=== PATIENT | male | born 1970 | race Caucasian/White ===

== ENCOUNTER → 2016-10-06 | Outpatient (CLI) | payer BC ==
[~2016-10-06] MED LIST: ASPI81TA28 PO; FLUO20CA35 PO; LORA-749 PO
[2016-10-06 17:06] LABS: BASO % 0.8 %; BASO ABS # 0.05 K/uL (0-0.2); COMPLETE YES; EOS % 4.4 %; HEMATOCRIT 45.9 % (42-52); IG% 0.2 %; LYMPH % 30.4 %; LYMPH ABS # 2.02 K/uL (1.2-3.4); MEAN CELL VOLUME 92.9 fL (80-100); MEAN CORPUSCULAR HEMOGLOBIN 32.4 pg (25-34); MEAN CORPUSCULAR HGB CONC 34.9 g/dl (32-36); MONO % 8.7 %; NEUT % 55.5 %; PLATELET COUNT 203 K/uL (130-400); RED BLOOD COUNT 4.94 M/uL (4.7-6.1); WHITE BLOOD COUNT 6.64 K/uL (4.8-10.8)
[2016-10-06 17:23] LABS: ALT/SGPT 33 U/L (12-78); AST/SGOT 22 U/L (15-37); BLOOD UREA NITROGEN 8 mg/dl (7-18); BUN/CREATININE RATIO 8.7 (10-20); CALCIUM 8.2 mg/dl (8.5-10.1); CARBON DIOXIDE 28 mmol/L (21-32); CHLORIDE 107 mmol/L (98-107); GLUCOSE 86 mg/dl (70-99); POTASSIUM 4.3 mmol/L (3.5-5.1); SODIUM 142 mmol/L (136-145)
[2016-10-06 17:33] LABS: ALB/GLOB RATIO 1.2 (0.9-2); ALKALINE PHOSPHATASE 77 U/L (45-117); THYROID STIMULATING HORMONE 0.932 uIu/ml (0.300-4.500)
== END | disposition home or self-care (01) ==
LOC: C.LABBFT 12:00
PROVIDERS: ATTEND Physician Assistant Medical
DX: R06.02 Shortness of breath (principal); R42 Dizziness and giddiness

== ENCOUNTER → 2016-10-09 | Outpatient (CLI) | payer BC ==
--- NOTE | 2016-10-09 10:39 | DIAGNOSTIC IMAGING REPORT ---
CHEST 2 VIEWS ROUTINE CLINICAL HISTORY: R06.02 Shortness of [id number] dyspnea COMPARISON STUDY: 04/24/2016 FINDINGS: The bones soft tissues and hemidiaphragms are normal. The cardiomediastinal silhouette is normal. The lungs are clear. The pulmonary vasculature is normal. IMPRESSION: Negative chest. Electronically signed by: Jersey Aranda M.D. 10/09/2016 10:38 AM Dictated Date/Time: 10/09/2016 10:37 AM
== END | disposition home or self-care (01) ==
LOC: C.RAD 10:11
PROVIDERS: ATTEND Physician Assistant Medical
DX: R06.02 Shortness of breath (principal)

== ENCOUNTER 2017-03-29 08:28 | Emergency (ER) | payer BC ==
[~2017-03-29] VITALS: Ht 190.5 cm; Wt 97.8 kg
[~2017-03-29 08:28] MED LIST changes: -ASPI81TA28 PO; -LORA-749 PO
[2017-03-29 08:41] VITALS: TEMP 37; O2SAT 96; Ht 190.5 cm; Wt 97.8 kg
[2017-03-29 08:55] LABS: BASO % 0.9 %; BASO ABS # 0.04 K/uL (0-0.2); COMPLETE YES; EOS % 5.4 %; HEMATOCRIT 45.2 % (42-52); IG% 0.2 %; LYMPH % 35.9 %; LYMPH ABS # 1.54 K/uL (1.2-3.4); MEAN CELL VOLUME 90.9 fL (80-100); MEAN CORPUSCULAR HEMOGLOBIN 31.8 pg (25-34); MEAN PLATELET VOLUME 9.1 fL (7.4-10.4); MONO % 8.4 %; NEUT % 49.2 %; PLATELET COUNT 195 K/uL (130-400); RED BLOOD COUNT 4.97 M/uL (4.7-6.1); WHITE BLOOD COUNT 4.29 K/uL (4.8-10.8)
--- NOTE | 2017-03-29 09:01 | DIAGNOSTIC IMAGING REPORT ---
SINGLE VIEW CHEST CLINICAL HISTORY: Atypical chest pain. FINDINGS: An AP, portable, upright chest radiograph is compared to study dated 10/09/2016. The examination is degraded by portable technique and patient rotation. The cardiomediastinal silhouette is unremarkable. There is mild elevation of the right hemidiaphragm. The lungs and pleural spaces are clear. No pneumothorax is seen. The bony thorax is grossly intact. Fusion hardware is seen in the lower cervical spine. Postoperative change is also seen in the left shoulder. IMPRESSION: No acute cardiopulmonary abnormality. Electronically signed by: Nathan Chu M.D. 03/29/2017 8:59 AM Dictated Date/Time: 03/29/2017 8:58 AM
[2017-03-29 09:03] LABS: PARTIAL THROMBOPLASTIN RATIO 1.2; PROTHROMBIN TIME (PATIENT) 10.9 SECONDS (9.0-12.0)
[2017-03-29] MEDS ORDERED: LORA-749 PO (09:05)
[2017-03-29] MEDS ORDERED: ASPI81TA28 PO (09:05)
[2017-03-29 09:17] LABS: BUN/CREATININE RATIO 5.1 (10-20); CALCIUM 8.9 mg/dl (8.5-10.1); CREATININE 0.94 mg/dl (0.60-1.40); MAGNESIUM 2.4 mg/dl (1.8-2.4); POTASSIUM 4.2 mmol/L (3.5-5.1)
[2017-03-29 09:28] LABS: ALB/GLOB RATIO 1.2 (0.9-2); THYROID STIMULATING HORMONE 0.974 uIu/ml (0.300-4.500)
[2017-03-29] MEDS ORDERED: GI COCKTAIL PO STA (10:59)
[2017-03-29] MEDS ORDERED: LIDOCAINE HCL 2% VISC SOLN 20 ML UDC ONE (11:05)
[2017-03-29] MEDS ORDERED: ALUMINUM/MAGNESIUM SUSP 30 ML UDC ONE (11:05)
--- NOTE | 2017-03-29 14:09 | EMERGENCY ROOM VISIT NOTE ---
History First contact with patient: 08:36 Chief Complaint: CARDIAC ASSESSMENT Stated Complaint: CHEST TIGHTNESS/DIZZINESS Nursing Triage Summary: pt reports chest tightness started 2 days ago has been constant. no sob/n/v/not radiating. took 1 baby asa prior to arrival. yesterday felt like he was going to pass out History of Present Illness The patient is a 46 year old male who presents to the Emergency Room via private vehicle accompanied by female with complaints of "chest tightness/ dizziness". The patient states that 2 days ago he began with substernal chest pain that he rates as a 1/10. He states it is actually not really pain rather it's more of a tightness sensation. The pain is worse slightly with exertion but more when eating. There is slight shortness of breath. He has a history of A. fib. He states that he was chemically cardioverted. He did take aspirin this morning. The pain has been constant for the past 2 days. He denies any history of asthma. He did have some upper respiratory tract symptoms a few weeks ago but believes this is unrelated. He does smoke. He denies any recent surgeries, or leg swelling. Review of Systems A complete 10-point Review of Systems was discussed with the patient, with pertinent positives and negatives listed in the History of Present Illness. All remaining Review of Systems questions can be considered negative unless otherwise specified. Past Medical/Surgical History Medical Problems: (1) Fusion of C5 C6 cervical spine (2) Paroxysmal atrial fibrillation Family History Patient reports no known family medical history. Social History Smoking Status: Current Every Day Smoker Alcohol Use: occasionally Drug Use: none Marital Status: Housing Status: lives with family Occupation Status: employed Current/Historical Medications Scheduled Aspirin (Aspirin Ec), 81 MG PO UD Fluoxetine (Prozac), 20 MG PO BID Loratadine & Pseudoephedrine (Claritin-D 24 Hour), 1 TAB PO DAILY Physical Exam Vital Signs Date Time Temp Pulse Resp B/P (MAP) Pulse Ox O2 Delivery O2 Flow Rate FiO2 03/29/17 14:44 73 16 154/91 95 03/29/17 13:49 72 03/29/17 13:17 73 18 151/94 96 Room Air 03/29/17 11:51 67 16 149/97 96 Room Air 03/29/17 11:09 67 18 170/99 95 Room Air 03/29/17 10:05 63 18 155/95 97 Room Air 03/29/17 08:44 74 03/29/17 08:41 37.0 67 18 170/99 96 Room Air 03/29/17 08:41 96 Room Air Physical Exam VITAL SIGNS - Vital signs and nursing notes were reviewed. Stable. Hypertensive. GENERAL -46-year-old male appearing his stated age who is in no acute distress. Communicates well with provider and answers questions appropriately. SKIN - Without rashes. No petechial rashes. HEAD - NC/AT. EYES -Sclera anicteric. EARS - No deformities of external structures noted on gross examination bilaterally. NOSE - Midline and without cyanosis. No epistaxis or purulent drainage noted. MOUTH/OROPHARYNX - Without perioral cyanosis. LUNGS - Chest wall symmetric without accessory muscle use, intercostals retractions, or central cyanosis. Normal vesicular breath sounds CTA B/L. No wheezes, rales, or rhonchi appreciated. CARDIAC - RRR with S1/S2. No murmur, rubs, or gallops appreciated. Substernal pain is not reproducible with palpation. ABDOMEN - Abdominal contour normal without pulsations or visible masses. BS normoactive all four quadrants. No tenderness, palpable masses, hepatosplenomegaly, or ascites noted. Medical Decision & Procedures ER Provider Diagnostic Interpretation: SINGLE VIEW CHEST CLINICAL HISTORY: Atypical chest pain. FINDINGS: An AP, portable, upright chest radiograph is compared to study dated 10/09/2016. The examination is degraded by portable technique and patient rotation. The cardiomediastinal silhouette is unremarkable. There is mild elevation of the right hemidiaphragm. The lungs and pleural spaces are clear. No pneumothorax is seen. The bony thorax is grossly intact. Fusion hardware is seen in the lower cervical spine. Postoperative change is also seen in the left shoulder. IMPRESSION: No acute cardiopulmonary abnormality. Electronically signed by: Nathan Chu M.D. 03/29/2017 8:59 AM Dictated Date/Time: 03/29/2017 8:58 AM Laboratory Results 03/29/17 08:40 Red Blood Count 4.97, Mean Corpuscular Volume 90.9, Mean Corpuscular Hemoglobin 31.8, Mean Corpuscular Hemoglobin Concent 35.0, Mean Platelet Volume 9.1, Neutrophils (%) (Auto) 49.2, Lymphocytes (%) (Auto) 35.9, Monocytes (%) (Auto) 8.4, Eosinophils (%) (Auto) 5.4, Basophils (%) (Auto) 0.9, Neutrophils # (Auto) 2.11, Lymphocytes # (Auto) 1.54, Monocytes # (Auto) 0.36, Eosinophils # (Auto) 0.23, Basophils # (Auto) 0.04 03/29/17 08:40 Test 03/29/17 08:40 03/29/17 08:56 03/29/17 13:03 White Blood Count 4.29 K/uL (4.8-10.8) Red Blood Count 4.97 M/uL (4.7-6.1) Hemoglobin 15.8 g/dL (14.0-18.0) Hematocrit 45.2 % (42-52) Mean Corpuscular Volume 90.9 fL (80-100) Mean Corpuscular Hemoglobin 31.8 pg (25-34) Mean Corpuscular Hemoglobin Concent 35.0 g/dl (32-36) Platelet Count 195 K/uL (130-400) Mean Platelet Volume 9.1 fL (7.4-10.4) Neutrophils (%) (Auto) 49.2 % Lymphocytes (%) (Auto) 35.9 % Monocytes (%) (Auto) 8.4 % Eosinophils (%) (Auto) 5.4 % Basophils (%) (Auto) 0.9 % Neutrophils # (Auto) 2.11 K/uL (1.4-6.5) Lymphocytes # (Auto) 1.54 K/uL (1.2-3.4) Monocytes # (Auto) 0.36 K/uL (0.11-0.59) Eosinophils # (Auto) 0.23 K/uL (0-0.5) Basophils # (Auto) 0.04 K/uL (0-0.2) RDW Standard Deviation 41.9 fL (36.4-46.3) RDW Coefficient of Variation 12.7 % (11.5-14.5) Immature Granulocyte % (Auto) 0.2 % Immature Granulocyte # (Auto) 0.01 K/uL (0.00-0.02) Prothrombin Time 10.9 SECONDS (9.0-12.0) Prothromb Time International Ratio 1.0 (0.9-1.1) Activated Partial Thromboplast Time 31.2 SECONDS (21.0-31.0) Partial Thromboplastin Ratio 1.2 D-Dimer 340 ug/L FEU (0-500) Anion Gap 8.0 mmol/L (3-11) Est Creatinine Clear Calc Drug Dose 118.6 ml/min Estimated GFR () 113.0 Estimated GFR (Non- 97.5 BUN/Creatinine Ratio 5.1 (10-20) Calcium Level 8.9 mg/dl (8.5-10.1) Magnesium Level 2.4 mg/dl (1.8-2.4) Total Bilirubin 0.6 mg/dl (0.2-1) Aspartate Amino Transf (AST/SGOT) 28 U/L (15-37) Alanine Aminotransferase (ALT/SGPT) 39 U/L (12-78) Alkaline Phosphatase 87 U/L (45-117) Total Creatine Kinase 112 U/L (39-308) Creatine Kinase MB 1.1 ng/ml (0.5-3.6) Creatine Kinase MB Ratio 1.0 (0-3.0) Total Protein 7.9 gm/dl (6.4-8.2) Albumin 4.3 gm/dl (3.4-5.0) Globulin 3.6 gm/dl (2.5-4.0) Albumin/Globulin Ratio 1.2 (0.9-2) Lipase 327 U/L (73-393) Thyroid Stimulating Hormone (TSH) 0.974 uIu/ml (0.300-4.500) Bedside Troponin I < 0.030 ng/ml (0-0.045) Troponin I 0.035 ng/ml (0-0.045) Medications Administered Medications (Trade) Dose Ordered Sig/Kt Route Start Time Stop Time Status Last Admin Dose Admin Al Hydroxide/Mg Hydroxide (Maalox Susp) 30 ml STK-MED ONCE .ROUTE 03/29/17 11:05 03/29/17 11:06 DC 03/29/17 11:08 30 ML Lidocaine HCl (Viscous Lidocaine 2% Soln) 20 ml STK-MED ONCE .ROUTE 03/29/17 11:05 03/29/17 11:06 DC 03/29/17 11:09 20 ML Medical Decision Patient was seen and evaluated as above. He presents to us today with substernal chest pain. It is worse after eating. It is also slightly worse with exertion. He is well on exam. His history of A. fib. Otherwise he is healthy. The pain has been persistent for the past 2 days. Troponin was found to be normal but approaching high normal. Chest x-ray no acute process, perhaps a slight elevation of the right hemidiaphragm but is similar compared to previous. His bedside EKG reveals normal sinus rhythm, with EDC's. No evidence of NV or PE. This appears improved compared to previous. Patient's CBC reveals white blood cell count low at 4.29. No evidence of anemia. Coags grossly normal, d-dimer 340. Patient had a blood panel reveals no evidence of kidney or liver failure. TSH normal. Lipase normal. I discussed the case with the attending physician, and subsequent only Dr. Che, at 11:25 AM. The night order selector recommended that I repeat a troponin at 1 PM. He was also given a GI cocktail and felt much better. He states that this increases he is to admitted, if the same or less he can be followed in the outpatient setting. This was performed and found to be slightly elevated white 0.003 points. I felt that admission was appropriate, therefore discussed the case with Dr. Aparicio , [facility] hospitalist group. He felt that the number was insignificant, and could be lab error margin. He requests I speak with Dr. Che, of cardiology again. I did so at 2:00 PM. I informed him upon the findings. He recommended that I could send the patient home to follow-up in the outpatient setting rather than admission. I believe this is reasonable. The patient also preferred to be discharged. He is to follow with cardiology/family doctor from today's visit. He is also to follow up through his elevated blood pressure. He was educated upon management, educated upon worrisome symptoms which to return, had questions answered prior to discharge, and was discharged home in good condition. In evaluation treatment this patient following differential diagnoses were entertained: NV, PE, pericarditis, GERD, among others. Impression Primary Impression: Chest pain Departure Information Dispostion Home / Self-Care Condition GOOD Referrals Jose Alicia M.D. (PCP) Tremayne Che M.D. Patient Instructions My [facility] Additional Instructions You have been treated in the Emergency Department your chest pain. Laboratory results and imaging studies have ruled out any emergent causes for your chest pain which would warrant admission or surgery but do recommend follow-up. You may use the [id number] Zantac as we discussed. Please call your family doctor to schedule follow-up and perhaps to see cardiology as well. Numbers listed above. Drink plenty of water and stay well hydrated. As with any trip to the Emergency Department, you should follow-up with your Primary Care Provider from today's visit. Please return with any new/concerning symptoms. Thank you
[2017-03-29 14:44] VITALS: BP 154/91; PULSE 73; O2SAT 95
== END 2017-03-29 14:44 | disposition home or self-care (01) ==
LOC: C.EDB 08:30 → C.EDA 14:44
DX: R07.9 Chest pain, unspecified (principal); I48.91 Unspecified atrial fibrillation; F17.200 Nicotine dependence, unspecified, uncomplicated; Z98.1 Arthrodesis status; Z79.82 Long term (current) use of aspirin; Z79.899 Other long term (current) drug therapy

== ENCOUNTER 2017-05-29 10:48 | Observation (INO) | payer BC ==
[2017-05-28 23:35] VITALS: BP 151/91; PULSE 56; TEMP 36.9; O2SAT 95
[~2017-05-29] VITALS: Ht 190.5 cm; Wt 94.6 kg
[~2017-05-29 10:48] MED LIST changes: +ASPI81TA28 PO; +LORA-749 PO
--- NOTE | 2017-05-29 11:30 | EMERGENCY ROOM VISIT NOTE ---
History First contact with patient: 11:01 Chief Complaint: DIZZY Stated Complaint: DIZZINESS/FAINTNESS Nursing Triage Summary: "I've been dizzy and feeling like I'm going to pass out." This has been going on for a couple of months and it's getting really bad now. Feels the dizziness on the left base of the head and travels up over his left eye. He had a prior bleed on the brain in 2008 on the left side. History of Present Illness The patient is a 46 year old male who presents to the Emergency Room with complaints of dizziness and presyncope for the past 3 months. The patient states the dizziness is pretty constant, but occasionally he feels like he will fall due to extreme dizziness and balance disturbances. The patient describes a pressure-like sensation radiating from the posterior base of his head around the top of his head and into his left thigh. The patient states he associates this pain with the presyncopal episodes. He does have a history of intracranial hemorrhage on the left side several years ago from an accident. The patient does not recall the sensation he had related to the intracranial hemorrhage, but is concerned due to this history. He does report history of neck surgery at C5/C6 and C7, but states sensation is not similar to anything he experienced with the neck problems either. He describes a cramping sensation in the left trapezius muscle, radiating from the left shoulder into the base of the head. He states this feels like a cramping sensation, and he is concerned that that could be making him dizzy. The patient denies any recent injury or falls. A few months ago, he was here with the same dizziness complaints but also complaining of chest discomfort. He states he continues to intermittently get the chest pressure, but it is not as bad now as it has been in the past. He has been following up outpatient with gastroenterology and cardiology regarding the chest discomfort, and is scheduled to see cardiology on . The chest pain is not exertional, and often happens associated with the severe dizziness while sitting and at rest. There is no associated dyspnea or diaphoresis the chest discomfort. The patient does report a history of atrial fibrillation, and states this is intermittent area he states he knows when he goes into and out of atrial fibrillation, and his last episode was "a few days ago". He states this lasted for approximately a half a day but went away on its own. He was previously on amiodarone and cardiac set, but was taken off of these medications. He has not consistently followed up with the painter hand regarding his atrial fibrillation. The patient denies any recent illness, nausea, vomiting, falls, weakness, blurry vision, wheezing, difficulty breathing, back pain, muscle aches, leg swelling, or other associated symptoms. Review of Systems A complete 10 point review of systems was reviewed with the patient with pertinent positives and negatives as per history of present illness. All else were negative. Past Medical/Surgical History Medical Problems: (1) Fusion of C5 C6 cervical spine (2) Paroxysmal atrial fibrillation Family History Patient reports no known family medical history. Social History Smoking Status: Current Every Day Smoker Alcohol Use: occasionally Drug Use: none Marital Status: Housing Status: lives with family Occupation Status: employed Current/Historical Medications Scheduled Aspirin (Aspirin Ec), 81 MG PO UD Fluoxetine (Prozac), 20 MG PO BID Omeprazole (Prilosec), 20 MG PO BID Physical Exam Vital Signs Date Time Temp Pulse Resp B/P (MAP) Pulse Ox O2 Delivery O2 Flow Rate FiO2 05/29/17 15:58 70 18 142/87 97 Room Air 05/29/17 14:51 58 16 150/87 97 Room Air 05/29/17 12:49 61 16 146/90 95 Room Air 05/29/17 11:37 76 05/29/17 11:27 75 167/107 73 150/99 78 132/105 05/29/17 11:27 98 Room Air 05/29/17 10:52 37.0 78 20 143/81 98 Room Air Physical Exam VITALS: Vitals are noted on the nurse's note and reviewed by myself. Vital signs stable. GENERAL: This is a 46-year-old white male, in no acute distress, nondiaphoretic , well-developed well-nourished. SKIN: The skin was without rashes, erythema, edema, or bruising. There is no tenting of the skin. Capillary reflex less than 2 seconds. HEAD: Normocephalic atraumatic. EARS: External auditory canals clear, tympanic membranes pearly tesfaye without erythema or effusion bilaterally. EYES: Pupils equal round and reactive to light and accommodation. Conjunctivae without injection, sclerae without icterus. Extraocular movements intact. NOSE: Patent, turbinates without inflammation or discharge. No sinus tenderness. MOUTH: Mucous membranes moist. Tonsils are not enlarged. Pharynx without erythema or exudate. Uvula midline. Airway patent. Tongue does not deviate. NECK: Supple without nuchal rigidity. No lymphadenopathy. No thyromegaly. Cervical spine is nontender. No JVD. HEART: Regular rate and rhythm without murmurs gallops or rubs. LUNGS: Clear to auscultation bilaterally without wheezes, rales or rhonchi. No dullness to percussion. No retractions or accessory muscle use. ABDOMEN: Positive bowel sounds x 4. Normal tympanic percussion. Soft, nontender, without masses or organomegaly. Wise sign negative. No guarding or rebound tenderness. MUSCULOSKELETAL: No muscle atrophy, erythema, or edema noted. Full range of motion without joint tenderness in all extremities. No tenderness to palpation. Normal gait. Strength 5/5 throughout. NEURO: Patient was alert and oriented to person place and time. Normal sensation to light and sharp touch. Cranial nerves II through VII in tact. Deep tendon reflexes 2+ throughout. No focal neurological deficits. Medical Decision & Procedures ER Provider Diagnostic Interpretation: CHEST 2 VIEWS ROUTINE CLINICAL HISTORY: Chest pain. Dizziness. COMPARISON STUDY: Chest radiograph March 29, 2017. FINDINGS: Lung volumes are normal. No consolidation is identified and there is no evidence for pulmonary edema. Cardiomediastinal silhouette is normal. Pulmonary vascularity is normal. The appearance of the chest is unchanged. IMPRESSION: No acute cardiopulmonary findings. Electronically signed by: Luis Keith M.D. 05/29/2017 1:46 PM Dictated Date/Time: 05/29/2017 1:[address] OF THE HEAD WITHOUT CONTRAST CLINICAL HISTORY: Dizziness, visual changes, pre-syncope. COMPARISON STUDY: Head CT January 08, 2016. CT DOSE: 614.27 mGy.cm TECHNIQUE: Helical axial images of the head were obtained without IV contrast. Automated exposure control was utilized for the study. A dose lowering technique was utilized adhering to the principles of ALARA. FINDINGS: No acute intracranial hemorrhage, midline shift or mass effect is present. Brain volume is normal. Ventricular system is normal. Basilar cisterns are patent. There are no extra-axial collections. Tesfaye-white differentiation is maintained. There are no findings to suggest acute thrombosis or acute territorial infarct. There are no significant calvarial abnormalities. Visualized portions of the sinuses and mastoid air cells are clear. IMPRESSION: No acute intracranial findings. Electronically signed by: Luis Keith M.D. 05/29/2017 12:07 PM Dictated Date/Time: 05/29/2017 12:05 PM Laboratory Results 05/29/17 11:40 Red Blood Count 4.76, Mean Corpuscular Volume 90.8, Mean Corpuscular Hemoglobin 31.7, Mean Corpuscular Hemoglobin Concent 35.0, Mean Platelet Volume 9.0, Neutrophils (%) (Auto) 49.5, Lymphocytes (%) (Auto) 36.1, Monocytes (%) (Auto) 7.9, Eosinophils (%) (Auto) 5.3, Basophils (%) (Auto) 1.2, Neutrophils # (Auto) 2.14, Lymphocytes # (Auto) 1.56, Monocytes # (Auto) 0.34, Eosinophils # (Auto) 0.23, Basophils # (Auto) 0.05 05/29/17 11:40 Test 05/29/17 11:20 05/29/17 11:40 05/29/17 13:00 05/29/17 16:01 Creatine Kinase MB Ratio (0-3.0) White Blood Count 4.32 K/uL (4.8-10.8) Red Blood Count 4.76 M/uL (4.7-6.1) Hemoglobin 15.1 g/dL (14.0-18.0) Hematocrit 43.2 % (42-52) Mean Corpuscular Volume 90.8 fL (80-100) Mean Corpuscular Hemoglobin 31.7 pg (25-34) Mean Corpuscular Hemoglobin Concent 35.0 g/dl (32-36) Platelet Count 186 K/uL (130-400) Mean Platelet Volume 9.0 fL (7.4-10.4) Neutrophils (%) (Auto) 49.5 % Lymphocytes (%) (Auto) 36.1 % Monocytes (%) (Auto) 7.9 % Eosinophils (%) (Auto) 5.3 % Basophils (%) (Auto) 1.2 % Neutrophils # (Auto) 2.14 K/uL (1.4-6.5) Lymphocytes # (Auto) 1.56 K/uL (1.2-3.4) Monocytes # (Auto) 0.34 K/uL (0.11-0.59) Eosinophils # (Auto) 0.23 K/uL (0-0.5) Basophils # (Auto) 0.05 K/uL (0-0.2) RDW Standard Deviation 40.7 fL (36.4-46.3) RDW Coefficient of Variation 12.3 % (11.5-14.5) Immature Granulocyte % (Auto) 0.0 % Immature Granulocyte # (Auto) 0.00 K/uL (0.00-0.02) Prothrombin Time 10.2 SECONDS (9.0-12.0) Prothromb Time International Ratio 1.0 (0.9-1.1) Activated Partial Thromboplast Time 29.0 SECONDS (21.0-31.0) Partial Thromboplastin Ratio 1.1 Anion Gap 6.0 mmol/L (3-11) Est Creatinine Clear Calc Drug Dose 128.2 ml/min Estimated GFR () 120.8 Estimated GFR (Non- 104.2 BUN/Creatinine Ratio 7.5 (10-20) Calcium Level 8.8 mg/dl (8.5-10.1) Magnesium Level 2.1 mg/dl (1.8-2.4) Total Bilirubin 0.7 mg/dl (0.2-1) Aspartate Amino Transf (AST/SGOT) 56 U/L (15-37) Alanine Aminotransferase (ALT/SGPT) 75 U/L (12-78) Alkaline Phosphatase 76 U/L (45-117) Creatine Kinase MB 1.1 ng/ml (0.5-3.6) Troponin I < 0.015 ng/ml (0-0.045) Total Protein 7.7 gm/dl (6.4-8.2) Albumin 4.2 gm/dl (3.4-5.0) Globulin 3.5 gm/dl (2.5-4.0) Albumin/Globulin Ratio 1.2 (0.9-2) Thyroid Stimulating Hormone (TSH) 1.140 uIu/ml (0.300-4.500) Lyme Disease IgG Antibody NEG (NEG) Lyme Disease IgM Antibody NEG (NEG) Urine Color DK YELLOW Urine Appearance CLEAR (CLEAR) Urine pH 7.5 (4.5-7.5) Urine Specific [place] 1.015 (1.000-1.030) Urine Protein NEG (NEG) Urine Glucose (UA) NEG (NEG) Urine Ketones NEG (NEG) Urine Occult Blood NEG (NEG) Urine Nitrite NEG (NEG) Urine Bilirubin NEG (NEG) Urine Urobilinogen NEG (NEG) Urine Leukocyte Esterase TRACE (NEG) Urine WBC (Auto) 1-5 /hpf (0-5) Urine RBC (Auto) 0-4 /hpf (0-4) Urine Hyaline Casts (Auto) 1-5 /lpf (0-5) Urine Epithelial Cells (Auto) 0-5 /lpf (0-5) Urine Bacteria (Auto) NEG (NEG) Random Cortisol 11.99 mcg/dl Medications Administered Medications (Trade) Dose Ordered Sig/Kt Route Start Time Stop Time Status Last Admin Dose Admin Sodium Chloride 1,000 ml @ 1,000 mls/hr Q1H IV 05/29/17 16:00 05/29/17 16:59 DC 05/29/17 17:55 1,000 MLS/HR ECG Indication: chest pain Rate (beats per minute): 69 Rhythm: sinus with SA Findings: no acute ischemic change, no ectopy Comparison ECG Date: 03/29/17 Change: no significant change ED Course The patient was seen and evaluated as above. He is currently complaining of his baseline dizziness, but denies any chest pain or feeling of presyncope. EKG obtained. IV access obtained, labs drawn. The patient was sent for CT head and chest x- ray. The case was reviewed with Dr. Friedman. Labs, imaging, EKG was reviewed and discussed with the patient at bedside. I did speak with the hospitalist, Dr. Medina, who will see and evaluate the patient. Medical Decision This is a 46-year-old male patient with past medical history of paroxysmal atrial fibrillation presents to the emergency department today complaining of dizziness and chest discomfort for several months. The patient was seen here in the emergency department in February with similar symptoms, and an outpatient workup regarding the patient's chest discomfort was initiated. The patient has had an upper endoscopy completed, and is scheduled to see cardiology this week, but his symptoms of dizziness, head pain, and chest discomfort have been worsening. He presents to the emergency department today, as he had very severe symptoms last night, to the point where he commented to his "you won't be laughing when I'm . You don't understand how bad this is." The patient has not discussed the dizziness or head pain with any provider outpatient. He states he does have this history of paroxysmal atrial fibrillation, and has not been managed with anticoagulants or other medication for several years. He has not seen his painter hand regularly, and has been noncompliant with follow-up. Workup here in the emergency department was overall unrevealing. CBC, CMP, cardiac enzymes, Lyme disease, magnesium testing were all within normal limits. Urinalysis did not reveal signs of infection. CT scan of the head and chest x-ray were unrevealing as well. EKG was reviewed by myself with no acute ischemic findings. Orthostatic viral signs showed slight decrease in blood pressure, but were certainly not positive. With the patient's history of atrial fibrillation and his symptoms, I am suspicious for possible stroke, and I do feel that the patient would benefit from inpatient workup to rule this out as a cause. The patient will be evaluated by the hospitalist. Please see hospitalist dictation regarding ongoing management and care. Etiologies such as ACS, PE, migraine, tumor, headache, sinus thrombosis, temporal arteritis, sinusitis, CVA, TIA, ICH, SAH, infection, as well as others were entertained. Medication Reconcilliation Current Medication List: was personally reviewed by me Blood Pressure Screening Patient's blood pressure: Normal blood pressure Impression Primary Impression: Dizziness Additional Impressions: Headache Chest pain AF (paroxysmal atrial fibrillation) Stroke-like symptoms Departure Information Dispostion Being Evaluated By Hospitalist Condition GOOD Referrals Jose Alicia M.D. (PCP) Patient Instructions My [facility] Problem Qualifiers Additional Impressions: Headache Headache type: unspecified Headache chronicity pattern: acute headache Intractability: intractable Qualified Codes: R51 - Headache Chest pain Chest pain type: other chest pain Qualified Codes: R07.89 - Other chest pain
[2017-05-29] MEDS ORDERED: PRLSR20 PO (11:35)
[2017-05-29 11:54] LABS: BASO % 1.2 %; BASO ABS # 0.05 K/uL (0-0.2); EOS % 5.3 %; EOS ABS # 0.23 K/uL (0-0.5); HEMATOCRIT 43.2 % (42-52); HEMOGLOBIN 15.1 g/dL (14.0-18.0); LYMPH % 36.1 %; LYMPH ABS # 1.56 K/uL (1.2-3.4); MEAN CELL VOLUME 90.8 fL (80-100); MEAN CORPUSCULAR HEMOGLOBIN 31.7 pg (25-34); MONO % 7.9 %; MONO ABS # 0.34 K/uL (0.11-0.59); NEUT % 49.5 %; NEUT ABS # 2.14 K/uL (1.4-6.5); PLATELET COUNT 186 K/uL (130-400); RED CELL DISTRIBUTION WIDTH CV 12.3 % (11.5-14.5); RED CELL DISTRIBUTION WIDTH SD 40.7 fL (36.4-46.3); WHITE BLOOD COUNT 4.32 K/uL (4.8-10.8)
--- NOTE | 2017-05-29 12:09 | DIAGNOSTIC IMAGING REPORT ---
CT OF THE HEAD WITHOUT CONTRAST CLINICAL HISTORY: Dizziness, visual changes, pre-syncope. COMPARISON STUDY: Head CT January 08, 2016. CT DOSE: 614.27 mGy.cm TECHNIQUE: Helical axial images of the head were obtained without IV contrast. Automated exposure control was utilized for the study. A dose lowering technique was utilized adhering to the principles of ALARA. FINDINGS: No acute intracranial hemorrhage, midline shift or mass effect is present. Brain volume is normal. Ventricular system is normal. Basilar cisterns are patent. There are no extra-axial collections. Tesfaye-white differentiation is maintained. There are no findings to suggest acute thrombosis or acute territorial infarct. There are no significant calvarial abnormalities. Visualized portions of the sinuses and mastoid air cells are clear. IMPRESSION: No acute intracranial findings. Electronically signed by: Luis Keith M.D. 05/29/2017 12:07 PM Dictated Date/Time: 05/29/2017 12:05 PM
[2017-05-29 12:17] LABS: ALBUMIN 4.2 gm/dl (3.4-5.0); ALT/SGPT 75 U/L (12-78); AST/SGOT 56 U/L (15-37); BLOOD UREA NITROGEN 7 mg/dl (7-18); CALCIUM 8.8 mg/dl (8.5-10.1); CARBON DIOXIDE 29 mmol/L (21-32); CREATININE 0.87 mg/dl (0.60-1.40); GLUCOSE 88 mg/dl (70-99); POTASSIUM 4.2 mmol/L (3.5-5.1); SODIUM 139 mmol/L (136-145)
[2017-05-29 12:28] LABS: ALKALINE PHOSPHATASE 76 U/L (45-117); CKMB 1.1 ng/ml (0.5-3.6); TOTAL PROTEIN 7.7 gm/dl (6.4-8.2)
--- NOTE | 2017-05-29 13:48 | DIAGNOSTIC IMAGING REPORT ---
CHEST 2 VIEWS ROUTINE CLINICAL HISTORY: Chest pain. Dizziness. COMPARISON STUDY: Chest radiograph March 29, 2017. FINDINGS: Lung volumes are normal. No consolidation is identified and there is no evidence for pulmonary edema. Cardiomediastinal silhouette is normal. Pulmonary vascularity is normal. The appearance of the chest is unchanged. IMPRESSION: No acute cardiopulmonary findings. Electronically signed by: Luis Keith M.D. 05/29/2017 1:46 PM Dictated Date/Time: 05/29/2017 1:46 PM
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
[2017-05-29] MEDS ORDERED: SODIUM CHLORIDE 0.9% 1000ML 1,000 ML IV SCH (16:00)
[2017-05-29] MEDS ORDERED: ACETAMINOPHEN 325 MG TAB PO PRN (16:15)
[2017-05-29] MEDS ORDERED: ONDANSETRON INJ 2 MG/ML 2 ML VIAL IV PRN (16:15)
[2017-05-29] MEDS ORDERED: ALUMINUM/MAGNESIUM/SIMETH (MAALOX MAX) 30 ML UDC PO PRN (16:15)
[2017-05-29] MEDS ORDERED: MAGNESIUM HYDROXIDE SUSP 30 ML UDC PO PRN (16:15)
[2017-05-29] MEDS ORDERED: LORAZEPAM 2 MG/ML 1 ML VIAL IV PRN (16:30)
[2017-05-29] MEDS ORDERED: GABAPENTIN 600 MG TAB PO SCH (16:30)
[2017-05-29] MEDS ORDERED: LORAZEPAM 1 MG TAB PO PRN (16:30)
[2017-05-29] MEDS ORDERED: CEROVITE ADV FORMULA TAB PO ONE (18:00)
[2017-05-29] MEDS ORDERED: THIAMINE HCL 100 MG TAB PO ONE (18:00)
--- NOTE | 2017-05-29 18:41 | DIAGNOSTIC IMAGING REPORT ---
ULTRASOUND OF THE CAROTID ARTERIES CLINICAL HISTORY: Near syncope. COMPARISON STUDY: No priors. TECHNIQUE: Real-time, grayscale, and color Doppler sonography of the carotid arteries is performed. Images are reviewed in the transverse and longitudinal planes. FINDINGS: Blood pressure in the right arm measures 155/91 and blood pressure in the left arm measures 158/87. The carotid arteries are patent bilaterally and demonstrate antegrade flow. There is no significant atherosclerotic plaque identified. Normal doppler arterial waveforms are seen throughout. Velocity measurements are listed below. Common carotid peak systolic velocity (cm/sec): RIGHT: 119 LEFT: 117 ICA proximal peak systolic velocity (cm/sec): RIGHT: 51 LEFT: 50 ICA mid peak systolic velocity (cm/sec): RIGHT: 42 LEFT: 61 ICA distal peak systolic velocity (cm/sec): RIGHT: 42 LEFT: 56 ICA/CC peak systolic ratio: RIGHT: 0.4 LEFT: 0.5 Antegrade flow was shown in the vertebral arteries. The external carotid arteries are patent. IMPRESSION: 1. There is no sonographic evidence of hemodynamically significant stenosis in the right or left carotid arterial system. 2. Antegrade flow is shown in the vertebral arteries. Electronically signed by: Nathan Chu M.D. 05/29/2017 6:39 PM Dictated Date/Time: 05/29/2017 6:38 PM
[2017-05-29 18:54] VITALS: BP 144/102; PULSE 69; TEMP 37.2; O2SAT 98; Ht 190.5 cm; Wt 94.6 kg
[2017-05-29] MEDS ORDERED: ENOXAPARIN 40 MG/0.4 ML SYR SC SCH (19:00)
[2017-05-29] MEDS ORDERED: GABAPENTIN 600MG LOADING DOSE PO ONE (20:00)
[2017-05-29 20:27] VITALS: BP 156/101; PULSE 65; TEMP 37.2; O2SAT 99
[2017-05-29] MEDS: FLUOXETINE HCL 20 MG CAP PO SCH (20:59)
[2017-05-29] MEDS: THIAMINE HCL 100 MG TAB PO SCH (20:59)
[2017-05-29] MEDS: SODIUM CHLORIDE 0.9% 1000ML 1,000 ML IV SCH ×2 (21:06→23:40)
--- NOTE | 2017-05-29 23:04 | DIAGNOSTIC IMAGING REPORT ---
CERVICAL SPINE 5 VIEWS CLINICAL HISTORY: Chronic neck pain. FINDINGS: AP, lateral, bilateral oblique, and odontoid views of the cervical spine are compared to study dated 04/05/2014. The skeletal structures are osteopenic. There is no radiographic evidence of acute fracture or subluxation. Vertebral body height is maintained throughout the cervical spine. Minimal anterolisthesis is again seen at C3-C4. Alignment is otherwise preserved. There are postoperative changes from anterior fusion noted at C5-C6 with near complete bony incorporation at this level. Anterior osteophytes are seen throughout. The spinolaminar line is intact. The odontoid process and lateral masses appear intact as seen on the open-mouth view. Neural foraminal stenosis is suggested bilaterally at C3-C4 on the oblique views. There is advanced disc space narrowing seen at C6-C7. Mild disc space narrowing is seen at the remaining cervical levels. Posterior disc osteophyte complexes at C3-C4, C4-C5, and C6-C7 likely contribute to multilevel acquired compromise of the central canal. Multilevel facet arthropathy is observed on the frontal view. The prevertebral soft tissues are within normal limits. The partially imaged apical lung parenchyma is grossly clear. IMPRESSION: 1. No acute bony abnormality is seen involving the cervical spine. Findings are similar to the 2013 examination. 2. Osteopenia with postoperative and spondylotic change as above. Dictated: 05/29/2017 7:37 PM Transcribed: 05/29/2017 11:03 PM ALETA_Rohith Electronically signed by: Nathan Chu M.D. 05/29/2017 11:12 PM Dictated Date/Time: 05/29/2017 7:37 PM
[2017-05-29 23:45] VITALS: BP 151/91; PULSE 56; TEMP 36.9; O2SAT 95
[2017-05-29] MEDS ORDERED: IV FLUIDS COMPLETED PRN (23:45)
[2017-05-30] VITALS (7 sets, daily range): BP systolic 142–168; BP diastolic 84–107; PULSE 56–69; TEMP 36.6–37; O2SAT 93–98
[2017-05-30] MEDS: SODIUM CHLORIDE 0.9% 1000ML 1,000 ML IV SCH ×2 (04:31→09:40)
[2017-05-30] MEDS: GABAPENTIN 100MG Q6H DOSE PO SCH ×2 (05:41→12:00)
[2017-05-30 06:25] LABS: CREATININE 0.82 mg/dl (0.60-1.40); POTASSIUM 4.1 mmol/L (3.5-5.1)
[2017-05-30] MEDS: FLUOXETINE HCL 20 MG CAP PO SCH (08:23)
[2017-05-30] MEDS: THIAMINE HCL 100 MG TAB PO SCH (08:23)
[2017-05-30] MEDS ORDERED: ASPIRIN 81 MG ECTAB PO SCH (09:00)
[2017-05-30] MEDS ORDERED: CEROVITE ADV FORMULA TAB PO SCH (09:00)
[2017-05-30] MEDS ORDERED: PANTOprazole SOD 40 MG TAB PO SCH (09:00)
--- NOTE | 2017-05-30 10:20 | ECHOCARDIOGRAM REPORT ---
*NOTICE TO RECEIVING [employer] This information is strictly Confidential and protected under [place] law. [place] law prohibits you from making any further disclosure of this information unless further disclosure is expressly permitted by the written consent of the person to whom it pertains or is authorized by law. A general authorization for the release of medical or other information is not sufficient for this purpose. Hospital accepts no responsibility if the information is made available to any other person, INCLUDING THE PATIENT. Interpretation Summary * Name: ARTUR TOUSSAINT Study Date: 05/30/2017 07:07 AM BP: 149/86 mmHg * Patient Location: C.2E\S\E204\S\1 HR: 54 * : 1970 (M/d/yyyy) Gender: Male Height: 75 in * Age: 46 yrs Ethnicity: CA Weight: 211 lb * Ordering Physician: Jorge Medina * Referring Physician: Self, Referred * Performed By: Sameera Vogt RCS * * Reason For Study: HX A-FIB * BSA: 2.2 m2 * -- Conclusions -- * 1. Normal LV size. Borderline concentric LVH. * 2. Normal LV systolic function. LVEF 55-60%. No regional wall motion abnormalities. * 3. Normal RV size and function. * 4. No significant valvular pathology. * 6. No significant valvular pathology. Procedure Details * A complete two-dimensional transthoracic echocardiogram was performed (2D, M-mode, Doppler and color flow Doppler). Left Ventricle * The left ventricle is grossly normal size. * There is borderline concentric left ventricular hypertrophy. * Ejection Fraction = 55-60%. * No regional wall motion abnormalities noted. Right Ventricle * The right ventricle is grossly normal size. * The right ventricular systolic function is normal as assessed by tricuspid annular plane systolic excursion (TAPSE) (normal >1.5 cm). Atria * The left atrial size is normal. * Right atrial size is normal. * No ASD detected; PFO is not assessed. Mitral Valve * The mitral valve is grossly normal. * There is no mitral valve stenosis. * There is trace mitral regurgitation. Tricuspid Valve * The tricuspid valve is not well visualized, but is grossly normal. * There is trace tricuspid regurgitation. Aortic Valve * The aortic valve opens well. * The aortic valve is trileaflet. * No hemodynamically significant valvular aortic stenosis. * There is no significant aortic regurgitation. Pulmonic Valve * The pulmonary valve is inadequately visualized, but the Doppler data is adequate for interpretation. * Pulmonic stenosis is absent. * Trace pulmonic valvular regurgitation. Great Vessels * The aortic root and proximal ascending aorta are normal sized. Pericardium/Pleural * There is no pericardial effusion. Great Vessels * There is no evidence of pulmonary hypertension. The PA systolic pressure is less than 36 mmHg. MMode 2D Measurements and Calculations IVSd 1.3 cm IVSs 1.8 cm LVIDd 5.4 cm LVIDs 3.8 cm LVPWd 1.1 cm LVPWs 1.4 cm IVS/LVPW 1.2 FS 28.7 % EDV(Teich) 138.3 ml ESV(Teich) 62.6 ml EF(Teich) 54.7 % EDV(cubed) 153.1 ml ESV(cubed) 55.6 ml EF(cubed) 63.7 % % IVS thick 41.5 % % LVPW thick 28.1 % LV mass(C)d 259.0 grams LV mass(C)dI 115.4 grams/m\S\2 LV mass(C)s 246.0 grams LV mass(C)sI 109.6 grams/m\S\2 SV(Teich) 75.7 ml SI(Teich) 33.7 ml/m\S\2 SV(cubed) 97.5 ml SI(cubed) 43.5 ml/m\S\2 Ao root diam 2.8 cm Ao root area 5.9 cm\S\2 ACS 2.2 cm LA dimension 3.5 cm LA/Ao 1.3 LVOT diam 2.2 cm LVOT area 3.7 cm\S\2 LVAd ap4 45.0 cm\S\2 LVLd ap4 9.1 cm EDV(MOD-sp4) 182.9 ml EDV(sp4-el) 188.5 ml LVAs ap4 27.3 cm\S\2 LVLs ap4 7.0 cm ESV(MOD-sp4) 89.1 ml ESV(sp4-el) 90.5 ml EF(MOD-sp4) 51.3 % EF(sp4-el) 52.0 % LVAd ap2 46.2 cm\S\2 LVLd ap2 9.4 cm EDV(MOD-sp2) 185.8 ml EDV(sp2-el) 192.8 ml LVAs ap2 28.9 cm\S\2 LVLs ap2 7.5 cm ESV(MOD-sp2) 92.8 ml ESV(sp2-el) 94.1 ml EF(MOD-sp2) 50.0 % EF(sp2-el) 51.2 % LVLd %diff 3.0 % EDV(MOD-bp) 187.9 ml LVLs %diff 7.1 % ESV(MOD-bp) 93.8 ml EF(MOD-bp) 50.1 % SV(MOD-sp4) 93.8 ml SI(MOD-sp4) 41.8 ml/m\S\2 SV(MOD-sp2) 93.0 ml SI(MOD-sp2) 41.4 ml/m\S\2 SV(MOD-bp) 94.0 ml SI(MOD-bp) 41.9 ml/m\S\2 SV(sp4-el) 98.0 ml SI(sp4-el) 43.7 ml/m\S\2 SV(sp2-el) 98.8 ml SI(sp2-el) 44.0 ml/m\S\2 Doppler Measurements and Calculations MV E max bev 87.4 cm/sec MV A max bev 48.5 cm/sec MV E/A 1.8 MV P1/2t max bev 93.2 cm/sec MV P1/2t 96.3 msec MVA(P1/2t) 2.3 cm\S\2 MV dec slope 283.5 cm/sec\S\2 MV dec time 0.20 sec Ao V2 max 119.1 cm/sec Ao max PG 5.7 mmHg Ao max PG (full) 2.8 mmHg LACHO(V,A) 2.6 cm\S\2 LACHO(V,D) 2.6 cm\S\2 LV V1 max PG 2.8 mmHg LV V1 max 84.1 cm/sec PA V2 max 128.6 cm/sec PA max PG 6.6 mmHg PI max bev 153.6 cm/sec PI max PG 9.4 mmHg PI dec slope 118.9 cm/sec\S\2 PI P1/2t 378.4 msec TR max bev 201.0 cm/sec
[2017-05-30] MEDS ORDERED: NURSING VERBAL MED ORDER ONE (11:00)
[2017-05-30] MEDS ORDERED: CYCLOBENZAPRINE HCL 10 MG TAB PO ONE (11:00)
--- NOTE | 2017-05-30 12:01 | Cardiology Consultation ---
Cardiology Consultation Date of Consultation: May 30, 2017. Requesting Physician: Tonny Reason for Consultation: Dizziness Pt evaluation today including: conversation w/ patient, physical exam, chart review, lab review, review of studies, review of inpatient medication list, conversation w/ attending History of Present Illness Patient is a 46-year-old gentleman with history of paroxysmal atrial fibrillation who has been experiencing episodes of what he describes as dizziness. The episodes themselves are fairly discrete in nature in can occur randomly. Did not appear to be associated with exertion or necessarily a change in position. They are very transient nature lasting only a few seconds. Patient states that these episodes feel as if he may pass out. He has never actually had syncope. He generally does not have time to react. The symptoms was self tended passed spontaneously. He did not feel well afterwards for period of time. There is not appear to be any associated symptoms such as nausea or diaphoresis. There is no associated chest pain or shortness of breath. He has not have any sense of palpitation. The episodes themselves appear to started approximately 3 months ago. They do not occur every day but can have multiple episodes in a given day. Most of these appear to occur at work and he states this there is any association may be related to eating. The episodes themselves appear to be slightly more common after eating. In general he is an active individual was accustomed to significant activity without symptom. He has not have limiting dyspnea or chest discomfort. He is not describe orthopnea or paroxysmal nocturnal dyspnea. He does have some occasional palpitations which are distinct from the episodes described above. He feels that these represent brief episodes of atrial fibrillation. They tend to last 30 minutes to an hour resolve spontaneously. They occur several times per year. Past Medical/Surgical History Paroxysmal atrial fibrillation Depression Hyperlipidemia Past surgical history: Knee arthroscopy Rotator cuff repair Family History Patient reports no known family medical history. Father of a heart attack in his 70s. Brother and sister healthy. 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 He does have a history of significant alcohol use Review of Systems No recent constitutional symptoms such as fevers or chills. Patient did recently stop taking Prozac. He thinks he may be more irritable since discontinuing that medication All Other Systems: Reviewed and Negative Allergies Coded Allergies: NSAIDs (Unverified Allergy, Severe, throat swelling, 03/29/17) Medications Current Inpatient Medications Medications (Trade) Dose Ordered Sig/Kt Route Start Time Stop Time Status Last Admin Dose Admin Enoxaparin Sodium (Lovenox Inj) 40 mg Q24H SC 05/29/17 19:00 06/28/17 18:59 05/29/17 20:57 40 MG Sodium Chloride 1,000 ml @ 200 mls/hr Q5H IV 05/29/17 18:40 06/28/17 18:39 05/30/17 09:40 200 MLS/HR Acetaminophen (Tylenol Tab) 650 mg Q4H PRN PO 05/29/17 16:15 06/28/17 16:14 Al Hydrox/Mg Hydrox/Simethicone (Maalox Max Susp) 15 ml Q4H PRN PO 05/29/17 16:15 06/28/17 16:14 Magnesium Hydroxide (Milk Of Magnesia Susp) 30 ml Q12H PRN PO 05/29/17 16:15 06/28/17 16:14 Ondansetron HCl (Zofran Inj) 4 mg Q6H PRN IV 05/29/17 16:15 06/28/17 16:14 Aspirin (Ecotrin Tab) 81 mg DAILY PO 05/30/17 09:00 06/29/17 08:59 05/30/17 08:22 81 MG Fluoxetine HCl (Prozac Cap) 20 mg BID PO 05/29/17 21:00 06/28/17 20:59 05/30/17 08:23 20 MG Pantoprazole Sodium (Protonix Tab) 40 mg QAM PO 05/30/17 09:00 06/29/17 08:59 05/30/17 08:23 40 MG Thiamine HCl (Vitamin B-1 Tab) 200 mg BID PO 05/29/17 21:00 06/28/17 20:59 05/30/17 08:23 200 MG Folic Acid (Folvite Tab) 1 mg QAM PO 05/30/17 09:00 06/29/17 08:59 05/30/17 08:22 1 MG Multivitamins/ Minerals (Multivitamin W/ Minerals Tab) 1 tab QAM PO 05/30/17 09:00 06/29/17 08:59 05/30/17 08:22 1 TAB Lorazepam (Ativan Tab) 1 mg ONE PRN PO 05/29/17 16:30 Lorazepam (Ativan Inj) 1 mg ONE PRN IV 05/29/17 16:30 Gabapentin (Neurontin Cap) 100 mg Q6H PO 05/30/17 06:00 05/30/17 12:01 05/30/17 05:41 100 MG Gabapentin (Neurontin Tab) 600 mg Q24H PO 05/31/17 12:00 05/31/17 12:01 Gabapentin (Neurontin Cap) 400 mg Q24H PO 06/01/17 12:00 06/01/17 12:01 Gabapentin (Neurontin Cap) 200 mg Q24H PO 06/02/17 12:00 06/02/17 12:01 Miscellaneous (Iv Fluids Completed) 1 ea PRN PRN N/A 05/29/17 23:45 05/29/18 23:44 Physical Exam Vital Signs Past 12 Hours Date Time Temp Pulse Resp B/P (MAP) Pulse Ox O2 Delivery O2 Flow Rate FiO2 05/30/17 11:13 37.0 57 16 161/101 (121) 93 Room Air 05/30/17 08:42 Room Air 05/30/17 08:01 36.6 66 16 142/97 (112) 98 Room Air 67 168/84 (112) 142/107 (119) 05/30/17 08:00 95 Room Air 05/30/17 06:25 60 143/91 (108) 69 151/98 (115) 68 142/97 (112) 05/30/17 04:07 Room Air 05/30/17 03:35 36.8 56 20 149/86 (107) 95 Room Air 05/30/17 00:17 Room Air The patient is alert and oriented. Mood and affect appeared normal. He answered all questions appropriately. HEENT: Pupils are equal and reactive to light and accommodation. Extraocular movements are intact. The sclerae are anicteric. Neuro: Cranial nerves intact Neck: Patient's neck is supple. He has palpable carotid pulses bilaterally without bruits on auscultation. There is no evidence of jugular venous distention. The thyroid is not enlarged. Lungs: Clear to auscultation bilaterally. He has good air movement without use of accessory muscles. No rales wheezes or rhonchi. Cardiac: Heart demonstrates a regular rate and rhythm. Normal S1 and S2. No murmurs on examination. Pulses: The patient has palpable radial pulses bilaterally that are equal in intensity Extremities: There was no evidence of hypoperfusion. There is no cyanosis or clubbing. There is no edema. Skin: I did not appreciate any rashes on examination today. Data Laboratory Results: Last 24 Hours Test 05/29/17 13:00 05/29/17 16:01 05/30/17 01:58 05/30/17 05:23 Urine Color DK YELLOW Urine Appearance CLEAR Urine pH 7.5 Urine Specific [place] 1.015 Urine Protein NEG Urine Glucose (UA) NEG Urine Ketones NEG Urine Occult Blood NEG Urine Nitrite NEG Urine Bilirubin NEG Urine Urobilinogen NEG Urine Leukocyte Esterase TRACE Urine WBC (Auto) 1-5 /hpf Urine RBC (Auto) 0-4 /hpf Urine Hyaline Casts (Auto) 1-5 /lpf Urine Epithelial Cells (Auto) 0-5 /lpf Urine Bacteria (Auto) NEG Random Cortisol 11.99 mcg/dl Urine Opiates Screen NEG Urine Methadone, Qualitative NEG Urine Barbiturates NEG Urine Phencyclidine (PCP) Level NEG Ur Amphetamine/Methamphetamine NEG MDMA (Ecstasy) Screen NEG Urine Benzodiazepines Screen NEG Urine Cocaine Metabolite NEG Urine Marijuana (THC) NEG Sodium Level 139 mmol/L Potassium Level 4.1 mmol/L Chloride Level 107 mmol/L Carbon Dioxide Level 26 mmol/L Anion Gap 6.0 mmol/L Blood Urea Nitrogen 9 mg/dl Creatinine 0.82 mg/dl Est Creatinine Clear Calc Drug Dose 136.0 ml/min Estimated GFR () 123.8 Estimated GFR (Non- 106.8 BUN/Creatinine Ratio 10.9 Random Glucose 84 mg/dl Calcium Level 8.0 mg/dl Aspartate Amino Transf (AST/SGOT) 41 U/L Imaging: Head CT was normal. Carotid duplex was normal. Chest x-ray was normal. EKG: Normal sinus rhythm. Essentially normal EKG Telemetry reviewed: No arrhythmias Assessment & Plan 1. Dizziness: The patient describes very discrete episodes of presyncope. These can occur in any position and very transient in nature. The seem to occur randomly are not associated with any specific activity. The fairly longstanding in nature. He has not experienced any true syncope. His echocardiogram was normal. His EKG is essentially normal. While he did have positive orthostatic hypotension at the time of admission, his symptoms are not consistent with this etiology. I think it is possible that he has some transient arrhythmia. I do not think this is related to atrial fibrillation. Unfortunately, he has not had any symptoms while on telemetry here in the hospital. I think the best evaluation currently would simply be outpatient event monitoring. 2. Paroxysmal atrial fibrillation: Patient has not had documented atrial fibrillation in some time. However, he does describe symptoms that he perceives as atrial fibrillation. These appear to be fairly infrequent, short in duration and well tolerated. His chads Vasc score is essentially 0. As such she does not require systemic anticoagulation. There was some discussion regarding the use of flecainide in the remote past. However, the patient has not started that medication orders seem to be a pressing indication at this time. I think he can simply have his symptoms monitored and we can discuss additional therapy if it becomes more bothersome.
[2017-05-30] MEDS ORDERED: THM100 PO (13:34)
[2017-05-30] MEDS ORDERED: FLV1 PO (13:34)
[2017-05-30] MEDS ORDERED: LISI-461 PO (13:34)
--- NOTE | 2017-05-30 15:20 | Discharge Instructions ---
Discharge Instructions Date of Service May 30, 2017. Admission Reason for Admission: Dizziness Discharge Discharge Diagnosis / Problem: Dizziness, near syncope Discharge Goals Goal(s): Decrease discomfort, Diagnostic testing Activity Recommendations Activity Limitations: resume your previous activity (as tolerated) . Instructions / Follow-Up Instructions / Follow-Up You were admitted for overnight observation after presenting with recurrent dizziness and near syncope. Work up for these symptoms included an echocardiogram, or ultrasound of the heart, cardiology evaluation, and imaging of the head and neck. You were also observed on a ammonia worker overnight. This work up has all come back normal. Cardiology is recommending that you wear a 30 day event monitor to see if there are any transient arrhythmias that we did not catch that are contributing to your symptoms. Due to your blood pressure readings, you have also been started on a low dose blood pressure medication. Medications: *Please take lisinopril 10 mg daily. This is a medication for blood pressure. Please follow up with your primary care provider regarding your blood pressure as this medication may need to be changed or titrated. Please be aware that this medication can also cause cough. *It is recommended that you take folic acid and thiamine (vitamin B1) supplements due to your alcohol use. These have been sent to your pharmacy. *Continue your home medications as prescribed. Follow up: *You have been scheduled to follow up at Dr. Alicia's office with Tatum Cano PA-C, on June 04 at 9:00 am. *You will need to follow up with cardiology following your 30 day event monitor period. Please seek medical attention if you experience fevers, chills, sweats, dizziness/lightheadedness, loss of consciousness, fall, chest pain, shortness of breath, nausea, vomiting, numbness or tingling. Current Hospital Diet Patient's current hospital diet: Regular Diet Discharge Diet Recommended Diet: Regular Diet Pending Studies Studies pending at discharge: no Medical Emergencies . Who to Call and When: Medical Emergencies: If at any time you feel your situation is an emergency, please call 911 immediately. . Non-Emergent Contact Non-Emergency issues call your: Primary Care Provider, Barrel Cutter Call Non-Emergent contact if: you have a fever, you have any medication questions . Past History Medical & Surgical History: (1) Dizziness . "Provider Documentation" section prepared by Radha Edmond. . VTE Core Measure Inpt VTE Proph given/why not?: Enoxaparin (Lovenox)SQ
--- NOTE | 2017-05-30 15:39 | Discharge Summary ---
Discharge Summary Date of Service May 30, 2017. Discharge Summary Admission Date: May 29, 2017 at 16:10 Discharge Date: May 30, 2017 Discharge Disposition: Home Principal Diagnosis: Dizziness Problems/Secondary Diagnoses: HLD, depression, OCD, GERD, h/o paroxysmal a-fib, h/o ICH Procedures: Echocardiogram: Interpretation Summary * Name: ARTUR TOUSSAINT Study Date: 05/30/2017 07:07 AM BP: 149/86 mmHg * [place] [facility] [place] [facility] [place]\[id number]\[id number] HR: 54 * : 1970 (M/d/yyyy) Gender: Male Height: 75 in * Age: 46 yrs Ethnicity: [place] Weight: 211 lb * Ordering Physician: Jorge Medina * Referring Physician: Self, Referred * Performed By: Sameera Vogt RCS * * Reason For Study: HX A-FIB * BSA: 2.2 m2 * -- Conclusions -- * 1. Normal LV size. Borderline concentric LVH. * 2. Normal LV systolic function. LVEF 55-60%. No regional wall motion abnormalities. * 3. Normal RV size and function. * 4. No significant valvular pathology. * 6. No significant valvular pathology. Procedure Details * A complete two-dimensional transthoracic echocardiogram was performed (2D, M- mode, Doppler and color flow Doppler). Left Ventricle * The left ventricle is grossly normal size. * There is borderline concentric left ventricular hypertrophy. * Ejection Fraction = 55-60%. * No regional wall motion abnormalities noted. Right Ventricle * The right ventricle is grossly normal size. * The right ventricular systolic function is normal as assessed by tricuspid annular plane systolic excursion (TAPSE) (normal >1.5 cm). Atria * The left atrial size is normal. * Right atrial size is normal. * No ASD detected; PFO is not assessed. Mitral Valve * The mitral valve is grossly normal. * There is no mitral valve stenosis. * There is trace mitral regurgitation. Tricuspid Valve * The tricuspid valve is not well visualized, but is grossly normal. * There is trace tricuspid regurgitation. Aortic Valve * The aortic valve opens well. * The aortic valve is trileaflet. * No hemodynamically significant valvular aortic stenosis. * There is no significant aortic regurgitation. Pulmonic Valve * The pulmonary valve is inadequately visualized, but the Doppler data is adequate for interpretation. * Pulmonic stenosis is absent. * Trace pulmonic valvular regurgitation. Great Vessels * The aortic root and proximal ascending aorta are normal sized. Pericardium/Pleural * There is no pericardial effusion. Great Vessels * There is no evidence of pulmonary hypertension. The PA systolic pressure is less than 36 mmHg. Consultations: Cardiology Medication Reconciliation New Medications: Lisinopril (Zestril) 10 Mg Tab 1 TAB PO DAILY for 30 Days, #30 TAB Folic Acid (Folic Acid) 1 Mg Tab 1 MG PO QAM for 30 Days, #30 TAB Thiamine HCl (Vitamin B-1) 100 Mg Tab 200 MG PO BID for 30 Days, #120 TAB Continued Medications: Aspirin (Aspirin Ec) 81 Mg Tab 81 MG PO UD Fluoxetine (Prozac) 20 Mg Cap 20 MG PO BID Omeprazole (Prilosec) 20 Mg Capcr 20 MG PO BID, CAP Discharge Exam Patient reports feeling well. No episodes of dizziness/lightheadedness or near syncope overnight or this morning. He states that 1 day prior to arrival he had 10 of these near syncopal episodes while sitting down at work, prompting him to come to be evaluated. He is now feeling fine, however, with no complaints. The patient denies fevers, chills, sweats, chest pain, palpitations , claudication, cough, wheezing, shortness of breath, nausea, vomiting, abdominal pain, dysuria, hematuria, urinary retention, paralysis, weakness, numbness and tingling. Constitutional: No fever, No chills, No sweats Eyes: No worsening of vision, No eye pain, No diplopia ENT: No hearing loss, No nasal symptoms, No trouble swallowing Respiratory: No cough, No wheezing, No shortness of breath Cardiovascular: No chest pain, No claudication, No palpitations Abdomen: No pain, No nausea, No vomiting Musculoskeletal: No joint pain, No muscle pain, No swelling Genitourinary - Male: No dysuria, No urinary retention, No hematuria Neurologic: No paralysis, No weakness, No numbness/tingling Integumentary: No rash, No itch, No color change General appearance: Well-developed, well-nourished, no apparent distress Head: Normocephalic, atraumatic Eyes: Normal inspection, PERRL, EOMI ENT: Normal ENT inspection, hearing grossly normal, pharynx normal Neck: Supple, no JVD, trachea midline Respiratory/Chest: Lungs clear to auscultation, normal breath sounds, no respiratory distress Cardiovascular: Regular rate & rhythm, no gallop, no murmur Abdomen/GI: Normal bowel sounds, non-tender, soft Extremities/Musculoskeletal: Normal inspection, no calf tenderness, no pedal edema Neurological/Psych: Alert, normal mood/affect, oriented x 3 Skin: Normal color, warm/dry, no rash Hospital Course 46 y/o male with a history of HLD, depression, OCD, GERD, h/o paroxysmal a-fib, h/o ICH, and cervical spine DJD who presents with 2 months of dizziness and near syncope with acute worsening prior to arrival. Dizziness--none here, unclear etiology, workup here negative -Admit to tele for observation. No acute events overnight, no arrhythmias noted. Remained in sinus rhythm/sinus bradycardia with HR 50s-70s -Orthostatics positive in ED but w/o hypotension. Pt states symptoms worse sitting down, not changing position, so this does not seem related -Random cortisol WNL to r/o adrenal insufficiency -Echo unremarkable. EF 55-60%, no wall motion abnormalities or valvular pathology -Cardiology consulted, appreciate recs: Will pursue outpatient 30 day event monitor to see if any transient arrhythmias. No further intervention at this time, stable for discharge from cardiac standpoint. -Head CT, CXR, cervical spine x-ray, and carotid doppler ultrasounds all unremarkable H/o PAF---no a-fib noted on telemetry -EKG WNL -Cardiology does not recommended systemic anticoagulation at this time as low risk Elevated BP w/o diagnosis of HTN--BP has been borderline for a while per pt, elevated above baseline here in hospital -D/C with lisinopril 10 mg PO qd. F/u with PCP, titrate or add as needed Depression/OCD -Continue Prozac 20 mg PO BID GERD -Continue Prilosec Alcohol abuse--reports 6-10 beers/day, could be more -Placed on gabapentin for withdrawal prophylactically, no issues, no prn Ativan needed -D/C with thiamine and folate supplements DVT prophylaxis -Enoxaparin 40 mg SC q24h Code Status -Level I, FULL RESUSCITATION STATUS Supervising Note Dr. Lancaster I performed a history and physical examination on the patient. I reviewed above note and agree with it. I discussed discharge plan with APC and patient. During my face to face encounter with the patient, I answered all of the patient's questions. Total Time Spent: Greater than 30 minutes This includes examination of the patient, discharge planning, medication reconciliation, and communication with other providers. Discharge Instructions Please refer to the electronic Patient Visit Report (Discharge Instructions) for additional information. Additional Copies To Tatum Cano PA
[2017-05-31] MEDS ORDERED: GABAPENTIN 600MG X1 DOSE PO SCH (12:00)
[2017-06-01] MEDS ORDERED: GABAPENTIN 400MG X1 DOSE PO SCH (12:00)
[2017-06-02] MEDS ORDERED: GABAPENTIN 200MG X1 DOSE PO SCH (12:00)
== END 2017-05-30 14:25 | disposition home or self-care (01) ==
LOC: C.EDB 10:49 → C.2E 16:10 → ENRESERV 16:58
PROVIDERS: ADMIT Internal Medicine; ATTEND Internal Medicine
DX: R42 Dizziness and giddiness (principal); E78.5 Hyperlipidemia, unspecified; I48.0 Paroxysmal atrial fibrillation; F32.9 Major depressive disorder, single episode, unspecified; F17.200 Nicotine dependence, unspecified, uncomplicated; F42.9 Obsessive-compulsive disorder, unspecified; R51 Headache; R07.89 Other chest pain; K21.9 Gastro-esophageal reflux disease without esophagitis; F10.20 Alcohol dependence, uncomplicated; Z79.82 Long term (current) use of aspirin; Z98.1 Arthrodesis status

== ENCOUNTER 2021-09-05 14:29 | Observation (INO) ==
[2021-09-05 15:36] LABS: Basophils # (auto) 0.06 K/uL (0-0.2); Basophils % (auto) 0.8 %; Eosinophils # (auto) 0.15 K/uL (0-0.5); Eosinophils % (auto) 2.1 %; Hematocrit (blood only) 43.5 % (42-52); Hemoglobin 14.9 g/dL (14.0-18.0); Immature Granulocytes # (auto) 0.02 K/uL (0.00-0.02); Immature Granulocytes % (auto) 0.3 %; Lymphocytes % (auto) 12.7 %; Mean Corpuscular Hemoglobin 31.9 pg (25-34); Mean Corpuscular Hgb Conc 34.3 g/dL (32-36); Mean Corpuscular Volume 93.1 fL (80-100); Monocytes # (auto) 0.54 K/uL (0.11-0.59); Monocytes % (auto) 7.6 %; Neutrophils # (auto) 5.42 K/uL (1.4-6.5); Neutrophils % (auto) 76.5 %; Platelet Count 204 K/uL (130-400); RDW Coefficient of Variation 12.6 % (11.5-14.5); RDW Standard Deviation 42.9 fL (36.4-46.3); Red Blood Count 4.67 M/uL (4.7-6.1); White Blood Count 7.09 K/uL (4.8-10.8)
[2021-09-05 16:01] LABS: Albumin Globulin Ratio 1.6 (0.9-2); Albumin Level 4.6 gm/dl (3.4-5.0); BUN Creatinine Ratio 10.8 (10-20); Bilirubin,Total 0.6 mg/dl (0.2-1.0); Calcium 9.2 mg/dl (8.5-10.1); Creatinine Clr Calc Pharmacy 142.7 ml/min; Est GFR (African American) 124.7 ml/min; Est GFR (Non-African American) 107.6 ml/min; Globulin 2.8 gm/dl (2.5-4.0); Potassium 4.2 mmol/L (3.5-5.1); Total Protein 7.4 gm/dl (6.0-8.3)
--- NOTE | 2021-09-05 16:36 | Emergency Department Note ---
History of Present Illness General Chief complaint: Illness Stated complaint: TB SHOT Time Seen by Provider: 09/05/21 16:26 Source: patient Mode of arrival: ambulatory Limitations: no limitations History of Present Illness This patient is a 51-year-old male who works at the [employer] and comes in after inadvertently getting an insulin shot. He was supposed to get a TB test and they inadvertently injected him with what they believe is 10 units of long- acting insulin. This happened at 1:00 and when I saw him at 430 he says he feels "fine. He denies any lightheadedness or dizziness or shakiness no chest pain or shortness of breath no fever or chills. Home Medications Medication Instructions Recorded Confirmed Type lisinopril 10 mg tablet 10 mg PO DAILY #90 tab 05/17/21 09/05/21 Rx rivaroxaban 20 mg tablet (Xarelto) 20 mg PO DAILY #90 tab 05/17/21 09/05/21 Rx fluoxetine 20 mg capsule 20 mg PO BID #60 cap 06/15/21 09/05/21 Rx omeprazole magnesium 20 mg 20 mg PO BID #60 tab 06/15/21 09/05/21 Rx tablet,delayed release Allergies Allergy/AdvReac Type Severity Reaction Status Date / Time No Known Allergies Allergy Verified 06/14/21 09:50 Past Med/Surg History Medical History (Updated 09/05/21 @ 22:19 by Francois Shen MD) Acute osteomyelitis of clavicle Childhood osteomyelitis of the clavicle Anxiety Asthma well controlled, rarely uses inhaler Atrial fibrillation no cardioversion, treated with IV Amiodarone and converted to NSR. Depression GERD (gastroesophageal reflux disease) Hypertension OCD (obsessive compulsive disorder) Osteomyelitis Right inguinal hernia Surgical History History of arthroscopic knee surgery b/l History of colonoscopy scheduled for 06/22/20 [facility] Hx of microdiscectomy C6-C7 -- does have full ROM. S/P left inguinal hernia repair (07/09/20) Right Inguinal Hernia Open Repair with Mesh Dr. Cates 07/09/2020 S/P rotator cuff repair left Status post cervical spinal fusion C5-C6 (surgery done in [place]) Family History Father Myocardial infarction Peripheral vascular disease Lung cancer Hypertension Mother Dementia Hypertension Unknown Lung cancer Hypertension Brother Healthy adult Other No family history of adverse response to anesthesia Denies family history of Prostate cancer Colorectal cancer Social History Smoking Status: Current every day smoker Tobacco Type: Cigarettes Age Started Using Tobacco: 21; packs per day: 0.5; Cigarettes Per Day: 13; Second Hand Exposure: Yes; Do You Dip or Chew Tobacco: No; Tobacco Cessation Education Requested by Patient: No Hx Alcohol Use: Yes Alcohol type: beer Alcohol Intake Frequency: 4 or More x per/Week Alcohol Intake Frequency Comment: Approximately 6 beers per night Hx Substance Use: No Preferred Language: Grenadian Communication Ability: Effective Library Paraprofessional Required: No Beliefs That Will Affect Care: None marital status: Current Living Situation: Alone 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 Other Information That Helps Us Care for You: No Feels Safe at Home: Yes Safety Concerns: Feels Safe At This Time and Afraid for Self Assistive Devices: Glasses Review of Systems A total of 10 systems reviewed and were otherwise negative Physical Exam Vital Signs Vital Signs - 24 hr 09/05/21 14:53 09/05/21 16:42 09/05/21 18:20 Temperature 36.8 C Temperature Source Temporal Artery Scan Pulse Rate 69 Pulse Rate [Right Finger] 61 64 Pulse Rhythm [Right Finger] Regular Pulse Strength [Right Finger] Normal Respiratory Rate 18 16 16 Respiratory Effort / Characteristics Non-Labored Non-Labored Respiratory Depth Normal Normal Blood Pressure 157/88 H Blood Pressure [Right Arm] 162/83 H 160/97 H Blood Pressure Mean 111 Blood Pressure Mean [Right Arm] 109 118 Blood Pressure Position [Right Arm] Sitting Pulse Oximetry 99 100 98 Oxygen Delivery Method Room Air Room Air Sepsis Recent Fever Within 48 Hours No Sepsis New/Unexplained Change in Mental Status No Sepsis Action Taken by Nursing No Action Required General: Well developed well nourished middle-age male who appears in no acute distress, breathing comfortably on room air. Normal speech HEENT: Normal cephalic atraumatic. Pupils are equal round and reactive to light. Extraocular movements are intact. Oropharynx is pink with moist mucous membranes. No swelling of the mouth lips or tongue. Neck: Supple with a midline trachea. No meningeal signs or stiffness, no JVD or bruits. No Stridor. Chest: Clear to auscultation bilaterally. No wheezes or rhonchi. No increased work of breathing. Heart: Regular rate and rhythm without murmurs or gallops. Abdomen: Soft nontender, nondistended without rebound guarding or rigidity. Extremities: No cyanosis clubbing or edema. No calf tenderness or assymetry Spine/Back. Non tender to palpation. No CVA tenderness Skin: Good turgor without rashes. Neurologic exam: Cranial nerves two through 12 are intact. Motor and sensation are intact and symmetrical throughout. Course Administered Medications Fluoxetine HCl (Fluoxetine Hcl 20 Mg Cap) 20 mg PO BID [facility] Stop: 10/05/21 20:59 Last Admin: 09/05/21 20:57 Dose: 20 mg Documented by: [id number] Pantoprazole Sodium (Pantoprazole 40 Mg Tab) 40 mg PO BID [facility] Stop: 10/05/21 20:59 Last Admin: 09/05/21 20:56 Dose: 40 mg Documented by: [id number] Medical Decision Making Differential Diagnosis Hypoglycemia, overdose, toxicologic, metabolic Medical Records Attestation: I reviewed the patient's medical records. Home Medications Current Medication List: was personally reviewed by me Laboratory Data Attestation: I reviewed the patient's lab results. Result diagrams: 09/05/21 15:16 09/05/21 15:16 Lab Results 09/05/21 09/05/21 09/05/21 Range/Units 15:16 15:16 15:29 WBC 7.09 (4.8-10.8) K/uL RBC 4.67 L (4.7-6.1) M/uL Hgb 14.9 (14.0-18.0) g/dL Hct 43.5 (42-52) % MCV 93.1 (80-100) fL MCH 31.9 (25-34) pg MCHC 34.3 (32-36) g/dL RDW Std Deviation 42.9 (36.4-46.3) fL RDW Coeff of Franny 12.6 (11.5-14.5) % Plt Count 204 (130-400) K/uL MPV 9.0 (7.4-10.4) fL Immature Gran % (Auto) 0.3 % Neut % (Auto) 76.5 % Lymph % (Auto) 12.7 % Shasta % (Auto) 7.6 % Eos % (Auto) 2.1 % Baso % (Auto) 0.8 % Neut # (Auto) 5.42 (1.4-6.5) K/uL Lymph # (Auto) 0.90 L (1.2-3.4) K/uL Shasta # (Auto) 0.54 (0.11-0.59) K/uL Eos # (Auto) 0.15 (0-0.5) K/uL Baso # (Auto) 0.06 (0-0.2) K/uL Immature Gran # (Auto) 0.02 (0.00-0.02) K/uL Sodium 136 (136-145) mmol/L Potassium 4.2 (3.5-5.1) mmol/L Chloride 99 (98-107) mmol/L Carbon Dioxide 30 (21-32) mmol/L Anion Gap 7 (3-11) BUN 8 (6-23) mg/dl Creatinine 0.74 (0.6-1.4) mg/dl Est Cr Clr Drug Dosing 142.7 ml/min Est GFR ( Amer) 124.7 ml/min Est GFR (Non-Af Amer) 107.6 ml/min BUN/Creatinine Ratio 10.8 (10-20) Glucose 90 (70-99(Fasting)) mg/dl POC Glucose 94 (70-99) mg/dl Calcium 9.2 (8.5-10.1) mg/dl Total Bilirubin 0.6 (0.2-1.0) mg/dl AST 69 H (13-39) U/L ALT 88 H (7-52) U/L Alkaline Phosphatase 65 (34-104) U/L Total Protein 7.4 (6.0-8.3) gm/dl Albumin 4.6 (3.4-5.0) gm/dl Globulin 2.8 (2.5-4.0) gm/dl Albumin/Globulin Ratio 1.6 (0.9-2) SARS-CoV-2, RNA, NAAT (NEGATIVE) 09/05/21 09/05/21 Range/Units 17:40 18:03 WBC (4.8-10.8) K/uL RBC (4.7-6.1) M/uL Hgb (14.0-18.0) g/dL Hct (42-52) % MCV (80-100) fL MCH (25-34) pg MCHC (32-36) g/dL RDW Std Deviation (36.4-46.3) fL RDW Coeff of Franny (11.5-14.5) % Plt Count (130-400) K/uL MPV (7.4-10.4) fL Immature Gran % (Auto) % Neut % (Auto) % Lymph % (Auto) % Shasta % (Auto) % Eos % (Auto) % Baso % (Auto) % Neut # (Auto) (1.4-6.5) K/uL Lymph # (Auto) (1.2-3.4) K/uL Shasta # (Auto) (0.11-0.59) K/uL Eos # (Auto) (0-0.5) K/uL Baso # (Auto) (0-0.2) K/uL Immature Gran # (Auto) (0.00-0.02) K/uL Sodium (136-145) mmol/L Potassium (3.5-5.1) mmol/L Chloride (98-107) mmol/L Carbon Dioxide (21-32) mmol/L Anion Gap (3-11) BUN (6-23) mg/dl Creatinine (0.6-1.4) mg/dl Est Cr Clr Drug Dosing ml/min Est GFR ( Amer) ml/min Est GFR (Non-Af Amer) ml/min BUN/Creatinine Ratio (10-20) Glucose (70-99(Fasting)) mg/dl POC Glucose 91 (70-99) mg/dl Calcium (8.5-10.1) mg/dl Total Bilirubin (0.2-1.0) mg/dl AST (13-39) U/L ALT (7-52) U/L Alkaline Phosphatase (34-104) U/L Total Protein (6.0-8.3) gm/dl Albumin (3.4-5.0) gm/dl Globulin (2.5-4.0) gm/dl Albumin/Globulin Ratio (0.9-2) SARS-CoV-2, RNA, NAAT NEGATIVE (NEGATIVE) MDM Narrative This patient comes in as described above. He inadvertently got 10 units of long-acting insulin. He looks and feels good at 3/2 hours into this. Given the fact that is long-acting insulin it will not peak but more steady rate. His blood work looks fine. I did discuss the case with [place] [facility]. They also discussed it with her manager plant. They recommend observing him overnight to ensure that his blood sugar does not drop. Upon reassessment, it has been stable here and the patient is asymptomatic but they advised me to have it checked every 4 hours while awake and every 2 hour as well as sleep overnight. If the patient remains stable he will likely be able be discharged tomorrow. If his blood sugar drops it can be treated likely with food or IV dextrose if it is significantly low or he is altered. He is willing to stay I did discuss the case with Dr. Villaseñor who will be admitting/observe him for these measures Impression & Plan Unintentional poisoning by insulin Discharge Plan Visit Data Chief Complaint: Illness Stated Complaint: TB SHOT ED Provider: Francois Shen Discharge Problem: Unintentional poisoning by insulin Patient Disposition: Admitted As Inpatient Discharge Instructions Interventions: ED Discharge Assessment Last Done: 09/05/21 20:00
--- NOTE | 2021-09-05 18:40 | History & Physical Report ---
Date of Service September 05, 2021 Assessment & Plan (1) Unintentional poisoning by insulin: Plan: - Received 10 units of long-acting insulin around 1PM today instead of a TB shot. - Per poison control, recommend checking sugars every 4 hours while awake, every 2 hours overnight. - Sugars so far have been in 90s, patient asymptomatic, is eating. - Continue to monitor overnight. -Treat with hypoglycemic protocol as needed (2) Atrial fibrillation: Plan: -In a regular rhythm here - Reportedly diagnosed in 2008. Echo 05/30/2017 showed normal LV systolic function, EF 55-60%. Borderline concentric LVH. No significant valvular abnormalities. - Continue Xarelto 20mg daily. (3) Fatty liver: Plan: - Known, suspected secondary to alcohol intake. LFTs slightly elevated on labs today, however patient without complaints of abdominal pain, nausea, or vomiting. Have been elevated in the past. - We will order CMP in a.m., if LFTs remain stable can follow-up as outpatient. -Counseled on alcohol cessation or reduction (4) Hypertension: Plan: Blood pressures are mildly elevated Continue lisinopril 10 mg daily. (5) Hyperlipidemia: Plan: - Currently managed with diet. (6) Anxiety: Plan: - Continue fluoxetine 20 mg BID. (7) GERD (gastroesophageal reflux disease): Plan: - Continue omeprazole 20 mg BID. Plan: - Obs med/surg for BGMs overnight, anticipate d/c tomorrow. - SCDs for DVT ppx. - Full Code. History of Present Illness Chief Complaint: accidental insulin injection at work this afternoon Primary Care Provider: Jose Alicia MD Mr. Mayes is a 51-year-old male with past medical history of HTN, HLD, fatty liver suspected to be secondary to alcohol use, paroxysmal A. 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 He was supposed to get a PPD test, but they inadvertently injected him with what they believe is 10 units of long-acting insulin at 1:00 PM today. He states he is feeling fine and at no point today has felt unwell. Denies any lightheadedness, dizziness, shakiness, confusion, abdominal pain, chest pain, or SOB. Poison control contacted by ED provider who recommended keeping patient overnight for Q2h glucose monitoring. In ED, his VS are stable and wnl. Labs unremarkable with the exception of AST 69 ALT 88, BGMs x3 have been in 90s since arrival. Allergies Allergy/AdvReac Type Severity Reaction Status Date / Time No Known Allergies Allergy Verified 06/14/21 09:50 Home Medications Medication Instructions Recorded Confirmed Type lisinopril 10 mg tablet 10 mg PO DAILY #90 tab 05/17/21 09/05/21 Rx rivaroxaban 20 mg tablet (Xarelto) 20 mg PO DAILY #90 tab 05/17/21 09/05/21 Rx fluoxetine 20 mg capsule 20 mg PO BID #60 cap 06/15/21 09/05/21 Rx omeprazole magnesium 20 mg 20 mg PO BID #60 tab 06/15/21 09/05/21 Rx tablet,delayed release Past Med/Surg History Medical History (Updated 09/05/21 @ 18:30 by Claudia Olson PA-C) Acute osteomyelitis of clavicle Childhood osteomyelitis of the clavicle Anxiety Asthma well controlled, rarely uses inhaler Atrial fibrillation no cardioversion, treated with IV Amiodarone and converted to NSR. Depression GERD (gastroesophageal reflux disease) Hypertension OCD (obsessive compulsive disorder) Osteomyelitis Right inguinal hernia Surgical History History of arthroscopic knee surgery b/l History of colonoscopy scheduled for 06/22/20 [facility] Hx of microdiscectomy C6-C7 -- does have full ROM. S/P left inguinal hernia repair (07/09/20) Right Inguinal Hernia Open Repair with Mesh Dr. Cates 07/09/2020 S/P rotator cuff repair left Status post cervical spinal fusion C5-C6 (surgery done in [place]) Family History Father Myocardial infarction Peripheral vascular disease Lung cancer Hypertension Mother Dementia Hypertension Unknown Lung cancer Hypertension Brother Healthy adult Other No family history of adverse response to anesthesia Denies family history of Prostate cancer Colorectal cancer Social History Smoking Status: Current every day smoker Tobacco Type: Cigarettes Age Started Using Tobacco: 21; packs per day: 0.5; Cigarettes Per Day: 13; Second Hand Exposure: Yes; Do You Dip or Chew Tobacco: No; Tobacco Cessation Education Requested by Patient: No Hx Alcohol Use: Yes Alcohol type: beer Alcohol Intake Frequency: 4 or More x per/Week Alcohol Intake Frequency Comment: Approximately 6 beers per night Hx Substance Use: No Preferred Language: Yi Communication Ability: Effective Pierogi Maker Required: No Beliefs That Will Affect Care: None marital status: Current Living Situation: Alone 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 Other Information That Helps Us Care for You: No Feels Safe at Home: Yes Safety Concerns: Feels Safe At This Time and Afraid for Self Assistive Devices: Glasses Review of Systems Review of Systems: Constitutional: No fever/chills, weakness, fatigue, myalgias, anorexia, night sweats Eyes: No diplopia, no worsening or blurred vision ENT: normal hearing, no trouble swallowing Respiratory: No cough, sputum, dyspnea at rest or on exertion Cardiovascular: No chest pain, tightness or palpitations Abdomen: No pain, nausea, vomiting, diarrhea or constipation : Denies dysuria, hematuria, increased urgency/frequency, urinary retention Musculoskeletal: No joint pain, calf pain, swelling Neurologic: No weakness, numbness/tingling, or balance problems Psychiatric: No anxiety or depression Skin: No rash or itch Physical Exam Physical Exam: General: awake, alert, no apparent distress Head: Normocephalic, atraumatic ENT: PERRL, EOMI, no pharyngeal exudate, mucous membranes moist Chest: Clear to auscultation, on room air, no adventitious breath sounds Cardiac: Regular rate and rhythm, no murmur, no JVD, normal peripheral pulses, good capillary refill Abdominal: NABS x 4 quadrants, soft, nontender to palpation, no rebound, guarding or tenderness Extremities: Normal inspection, no peripheral edema or erythema, calfs nontender to palpation Psych: Normal mood and affect Neuro: AAO x 3, strength intact bilaterally and rated 5/5, no motor deficits, speech is clear, no peripheral sensory deficits Skin: no rash or erythema Results & Data Results & Data ([facility]) Vital Signs (Past 12 Hours) Vital Signs Temp Pulse Pulse Resp BP BP Pulse Ox 09/05/21 18:20 64 16 160/97 H 98 09/05/21 16:42 61 16 162/83 H 100 09/05/21 14:53 36.8 C 69 18 157/88 H 99 Laboratory Results Abnormal lab results 09/05/21 09/05/21 Range/Units 15:16 15:16 RBC 4.67 L (4.7-6.1) M/uL Lymph # (Auto) 0.90 L (1.2-3.4) K/uL AST 69 H (13-39) U/L ALT 88 H (7-52) U/L Supervising Physician Co-Signing Physician Notes PA Supervision Note: I personally saw and examined the patient. I verified all olson points and agree with HESHAM Olson with the following exceptions and/or additions: S-patient reported to the ER after accidentally receiving insulin instead of the PPD test. He denies any lightheadedness or shakiness, no sweating. No nausea or vomiting he is eating well. No abdominal pains or diarrhea or constipation. No chest pains or shortness of breath. He has no concerns. Blood sugars have been in the 90s and the most recent 1 was 148 after eating a sandwich. History and ROS reviewed as above O- Vitals reviewed Gen: AAOx3, NAD HEENT: Anicteric sclerae, EOMI CV: RRR no mgr nl S1S2 Pulm: CTAB no wcr Abd: +BS soft NT ND no masses or hernias Ext: No edema Skin: No rashes, warm/dry Neuro: Full strength throughout, ambulates normally Labs and rads reviewed A/X-15-efai-old male here with accidental injection of long-acting insulin. No hypoglycemia so far. Continue every 2 hours glucose checks through the night and hypoglycemic protocol as needed as recommended by poison control to the ER physician Most likely he will be fine and will be able to discharged home tomorrow PG Care Time/CCT Total # of Minutes Spent Total Time Spent with Patient: Total time spent is greater than 50% in coordination of care (as documented) at patient's floor/unit and/or counseling patient: Coding Level of Care Code INT OBSERVATION CARE 70M LVL 3 Diagnoses Unintentional poisoning by insulin T38.3X1A Hypertension I10 Hypertension type: essential hypertension Fatty liver K76.0 Hyperlipidemia E78.5 Anxiety F41.9 Atrial fibrillation I48.0 Atrial fibrillation type: paroxysmal GERD (gastroesophageal reflux disease) K21.9 Esophagitis presence: esophagitis presence not specified (1) Atrial fibrillation Atrial fibrillation type: paroxysmal Qualified Code(s): I48.0 - Paroxysmal atrial fibrillation (2) GERD (gastroesophageal reflux disease) Esophagitis presence: esophagitis presence not specified Qualified Code(s): K21.9 - Gastro-esophageal reflux disease without esophagitis (3) Hypertension Hypertension type: essential hypertension Qualified Code(s): I10 - Essential (primary) hypertension
[2021-09-05] MEDS ORDERED: ACETAMINOPHEN 325 MG TAB PO PRN (20:18)
[2021-09-05] MEDS ORDERED: GLUCAGON FOR INJ 1 MG VIAL SQ PRN (20:18)
[2021-09-05] MEDS ORDERED: GLUCOSE 40% GEL 15 GM TUBE PO PRN (20:18)
[2021-09-05] MEDS ORDERED: GLUCOSE 10 TABS/TUBE PO PRN (20:18)
[2021-09-05] MEDS ORDERED: ONDANSETRON INJ 2 MG/ML 2 ML VIAL IV PRN (20:18)
[2021-09-05] MEDS ORDERED: POLYETHYLENE (MIRALAX) 17 GM PACK PO PRN (20:18)
[2021-09-05] MEDS ORDERED: DEXTROSE 50% 50 ML SYRINGE IV PRN (20:18)
[2021-09-05] MEDS ORDERED: CARBOHYDRATES FOR HYPOGLYCEMIA PO PRN (20:18)
[2021-09-05] MEDS: PANTOprazole 40 MG TAB PO SCH (20:56)
[2021-09-05] MEDS: FLUoxetine HCL 20 MG CAP PO SCH (20:57)
[2021-09-06] MEDS: PANTOprazole 40 MG TAB PO SCH (08:03)
[2021-09-06] MEDS: FLUoxetine HCL 20 MG CAP PO SCH (08:03)
[2021-09-06] MEDS ORDERED: lisinopril 10 MG TAB PO SCH (09:00)
[2021-09-06] MEDS ORDERED: RIVAROXABAN 20 MG TAB PO SCH (09:00)
[2021-09-06 09:40] LABS: Albumin Globulin Ratio 1.6 (0.9-2); BUN Creatinine Ratio 9.2 (10-20); Bilirubin,Total 0.9 mg/dl (0.2-1.0); Est GFR (African American) 123.3 ml/min; Est GFR (Non-African American) 106.4 ml/min; Globulin 2.5 gm/dl (2.5-4.0); Potassium 4.3 mmol/L (3.5-5.1); Total Protein 6.5 gm/dl (6.0-8.3)
--- NOTE | 2021-09-06 14:16 | Discharge Summary ---
Date of Service September 06, 2021 Admission HPI Per Admitting Provider Mr. Mayes is a 51-year-old male with past medical history of HTN, HLD, fatty liver suspected to be secondary to alcohol use, paroxysmal A. 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 He was supposed to get a PPD test, but they inadvertently injected him with what they believe is 10 units of long-acting insulin at 1:00 PM today. He states he is feeling fine and at no point today has felt unwell. Denies any lightheadedness, dizziness, shakiness, confusion, abdominal pain, chest pain, or SOB. Poison control contacted by ED provider who recommended keeping patient overnight for Q2h glucose monitoring. In ED, his VS are stable and wnl. Labs unremarkable with the exception of AST 69 ALT 88, BGMs x3 have been in 90s since arrival. Principal Diagnosis 1. Accidental poisoning by insulin 2. Mild hyperglycemiaresolved Discharge Exam General: Resting comfortably in his hospital bed. NAD. HEENT: Head is AT/NC. Buccal mucosa is moist and pink Neck: No JVD. Negative hepatojugular reflex Cardiac: RRR without M/G/R Lungs: CTA without W/R/R Abdomen: Normoactive X4. Soft and nontender in all quadrants. Extremities: No peripheral clubbing cyanosis or edema Neuro: A&O X4. Cranial nerves II through XII are grossly intact. No focal neuro deficits Skin: No obvious skin lesions or rashes Psych: Appropriate affect. Pleasant and cooperative Discharge Data Allergies Allergy/AdvReac Type Severity Reaction Status Date / Time No Known Allergies Allergy Verified 06/14/21 09:50 Consultations 09/05/21 17:32 ED Decision to Admit Stat Hospital Course (1) Unintentional poisoning by insulin: - Received 10 units of long-acting insulin around 1PM 09/05 instead of a PPD. - BS upon arrival was 62. Given snack and improved to 90's. Slightly "shaky" but otherwise, no LOC, diaphoresis, N/V, - Per poison control, recommend checking sugars every 4 hours while awake, every 2 hours overnight. - Sugars been in 90s, patient asymptomatic, is eating. - hypoglycemic protocol on board but not needed - at this point, it has been 18 hours since injection--peak onset of Lantus is 3 to 4 hours. Patient stable for discharge to home (2) Atrial fibrillation: -In a regular rhythm here - Reportedly diagnosed in 2008. Echo 05/30/2017 showed normal LV systolic function, EF 55-60%. Borderline concentric LVH. No significant valvular abnormalities. - Continue Xarelto 20mg daily. (3) Fatty liver: - Known, suspected secondary to alcohol intake. LFTs slightly elevated on labs today, however patient without complaints of abdominal pain, nausea, or vo miting. Have been elevated in the past. -Counseled on alcohol cessation or reduction (4) Hypertension: Blood pressures are mildly elevated Continue lisinopril 10 mg daily. (5) Hyperlipidemia: - Currently managed with diet. (6) Anxiety: - Continue fluoxetine 20 mg BID. (7) GERD (gastroesophageal reflux disease): - Continue omeprazole 20 mg BID. Discharged home. No restrictions Total Time Total Time Spent Total Time Spent (In Minutes): 30 minutes Discharge Plan Discharge Items Patient Disposition: Home - Self-Care Reason For Visit: ACCIDENTAL INSULIN INJECTION Discharge Diagnosis: 1. Accidental Insulin Injection 2. Mild Hypoglycemia- resolved Activity: Resume your previous activity Non-emergency contact: Primary Care Provider Call non-emergency contact if: you have any medication questions Follow-up/Referrals: Jose Alicia MD [Primary Care Provider] - 09/08/21 3:00 pm (APPT WITH [facility]) Diet: Heart Healthy Addtl Attending Provider Instructions: you were hospitalized after an inadvertent injection of insulin (instead of the PPD) your blood sugar was 62 upon arrival but has since improved and remained stable (after snacking). Lantus (the insulin that you were injected with), lasts ~18 hours, with peak onset of 3-4 hours after injection; thus, there should be no residual issues no change in your medications you can return to work without restrictions Pending Studies at Discharge: No Stand-Alone Forms: My Pharmaca, Work/School Release, Smoking Cessation Medications and DC Order Prescriptions: Continued lisinopril 10 mg tablet 10 mg PO DAILY Qty: 90 RF: 3 Xarelto 20 mg tablet 20 mg PO DAILY Qty: 90 RF: 3 fluoxetine 20 mg capsule 20 mg PO BID Qty: 60 RF: 3 omeprazole magnesium 20 mg tablet,delayed release (DR/EC) 20 mg PO BID Qty: 60 RF: 3 Discharge Orders: Discharge Order (Routine); Ordered 09/06/21 Ordered By: Anastasia Snow/Other Patient Handouts: Types of Insulin Admission Data Admit Date/Time: 09/05/21 18:41 Attending Provider: Casey Lancaster Admit Provider: Nuria Villaseñor Primary Care Provider: Jose Alicia Other Providers: Nuria Villaseñor Other Interventions: Discharge Summary Assessment (RN) Last Done: 09/06/21 10:12 Coding Level of Care Code 89401 OBS Care - Discharge Diagnoses Unintentional poisoning by insulin T38.3X1A Atrial fibrillation I48.0 Atrial fibrillation type: paroxysmal Fatty liver K76.0 Hypertension I10 Hypertension type: essential hypertension Hyperlipidemia E78.5 Anxiety F41.9 GERD (gastroesophageal reflux disease) K21.9 Esophagitis presence: esophagitis presence not specified
== END 2021-09-06 11:21 | disposition home or self-care (01) ==
LOC: ED 14:29 → 3N 14:29 → SUATTDRO 18:41 → 3N 20:00